=== PATIENT | female | born 1945 | race Hispanic/Latino ===

== ENCOUNTER 2017-11-07 12:59 | Inpatient (IN) | payer OTHER, MEDICARE ==
[2017-11-07 13:04] VITALS: BMI 25.8
--- NOTE | 2017-11-07 13:17 | ED PDOC ---
Arrival/HPI - General Chief Complaint: Seizure Time Seen by Provider: 11/07/17 13:05 Historian: Patient - History of Present Illness Narrative History of Present Illness (Text): 11/07/17 13:16 72 year old female, whose PMH includes dementia, OR, mastectomy, and anxiety, who presents to the emergency department s/p seizure episode prior to arrival. Patient is accompanied by her sister, who states feeding patient and at around 12 PM today patient began to have a seizure episode that was also witnessed by sister's . Sister reports this similar symptom occurred 5 years ago in the setting of a colon perf and OR. Patient is currently being treated by Dr. Ruiz for her dementia. Patient is currently asymptomatic, and denies chest pain , shortness of breath, head trauma, falls, fever, or other complaints. Sister denies postictal period, bleeding, urination, defecation, or vomiting. PMD: Dr. Sara Lazaro Time/Duration: Prior to Arrival Symptom Onset: Sudden Symptom Course: Resolved Context: Home Past Medical History - Provider Review Nursing Documentation Reviewed: Yes - Infectious Disease Hx of Infectious Diseases: None - Tetanus Immunization Tetanus Immunization: Unknown - Past Medical History Past Medical History: No Previous - Cardiac Hx Cardiac Disorders: Yes Hx OR: Yes - Pulmonary Hx Respiratory Disorders: No - Neurological Hx Neurological Disorder: Yes HX Cerebrovascular Accident: No (family denies) Hx Dementia: Yes - HEENT Hx HEENT Disorder: No (WEARS RX GLASSES) - Renal Hx Renal Disorder: No - Endocrine/Metabolic Hx Endocrine Disorders: No - Hematological/Oncological Hx Blood Disorders: No Hx Cancer: No - Integumentary Hx Dermatological Disorder: No - Musculoskeletal/Rheumatological Hx Musculoskeletal Disorders: Yes Hx Arthritis: Yes (OSTEOARTHRITIS) - Gastrointestinal Hx Gastrointestinal Disorders: Yes (WEIGHT LOSS,GASTRITIS) Hx Colostomy: Yes (from intestinal perforation 12/2013) Hx Diverticulitis: Yes HX Swallowing Problems: Yes (PUREED FOOD,ASPIRATION PRECAUTION) Other/Comment: reversal of colostomy - Genitourinary/Gynecological Hx Genitourinary Disorders: No Hx Incontinence: No (family denies) Hx Sexually Transmitted Diseases: No - Psychiatric Hx Psychophysiologic Disorder: Yes (obsessive compulsive) Hx Anxiety: Yes Hx Depression: Yes Hx Emotional Abuse: No Hx Physical Abuse: No Hx Schizophrenia: Yes Hx Substance Use: No - Surgical History Hx Mastectomy: Yes (breast cyst) Other/Comment: colostomy due to bowel perf/reversal of colostomy - Anesthesia Hx Anesthesia: Yes Hx Anesthesia Reactions: No Hx Malignant Hyperthermia: No - Suicidal Assessment Feels Threatened In Home Enviroment: No Family/Social History - Physician Review Nursing Documentation Reviewed: Yes Family/Social History: No Known Family HX Smoking Status: Never Smoked Hx Alcohol Use: No Hx Substance Use: No Hx Substance Use Treatment: No Allergies/Home Meds Allergies/Adverse Reactions: Allergies haloperidol [From Haldol] Allergy (Verified 11/05/15 19:44) ANAPHYLAXIS haloperidol lactate [From Haldol] Allergy (Verified 11/05/15 19:44) ANAPHYLAXIS shellfish derived Allergy (Verified 11/05/15 19:44) ANAPHYLAXIS Home Medications: Home Meds Medication Instructions Recorded Confirmed Atorvastatin [Lipitor] 10 mg PO DAILY 11/05/15 11/07/17 Pramipexole [Mirapex] 0.5 mg PO TID 11/05/15 11/07/17 clonazePAM [Klonopin] 1 mg PO QID 11/07/17 11/07/17 Review of Systems - Physician Review All systems were reviewed & negative as marked: Yes - Review of Systems Respiratory: absent: SOB Cardiovascular: absent: Chest Pain Neurological: Seizure. absent: Dizziness, Speech Changes Physical Exam - Physical Exam Narrative Physical Exam (Text): 11/07/17 Constitutional: No acute distress. Head: Normocephalic. Atraumatic. Eyes: PERRL. ENT: (+) Dry mucous membranes. (-) no sign of tongue bite Neck: Supple. Cardiovascular: (+) tachycardia Chest: No tenderness. Respiratory: Clear to auscultation bilaterally. GI: Soft. Nontender. Nondistended. Back: No CVA tenderness. Musculoskeletal: No tenderness or swelling of extremities. Skin: No rash. Neurologic: Alert, no focal deficit. 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 Plan: -- EKG -- CT head -- Chest X-ray -- Labs -- Urinalysis -- Reassess and disposition Progress Notes: EKG: Ordered, reviewed, and independently interpreted the EKG. Rate : 120 BPM Rhythm : sinus tachycardia Interpretation : No ST-segment elevations or depressions, no T-wave inversions, normal intervals. 11/07/17 14:20 Chest X-ray: Creator : Pedro Luis Castillo MD COMPARISON: 11/04/2017 FINDINGS: LUNGS: No active pulmonary disease. PLEURA: No significant pleural effusion identified, no pneumothorax apparent. CARDIOVASCULAR: No radiographic findings to suggest acute or significant cardiovascular disease. OSSEOUS STRUCTURES: No significant abnormalities. VISUALIZED UPPER ABDOMEN: Normal. OTHER FINDINGS: None. IMPRESSION: No active disease. No significant interval change compared to the prior examination(s). Head CT no acute findings. HR normalized without intervention. Dr. Deal accepts patient to his service and recommends Dr. Villegas for neurology consultation. - Lab Interpretations Lab Results: 11/07/17 14:00 11/07/17 14:00 Lab Results 11/07/17 15:12: Urine Color Yellow, Urine Appearance Clear, Urine pH 6.0, Ur Specific [place] >= 1.030, Urine Protein Trace H, Urine Glucose (UA) >=1000, Urine Ketones Trace H, Urine Blood Trace-lysed H, Urine Nitrate Negative, Urine Bilirubin Negative, Urine Urobilinogen 0.2, Ur Leukocyte Esterase Negative, Urine RBC 0 - 2, Urine WBC 5 - 10, Ur Epithelial Cells 0 - 2, Urine Bacteria Trace 11/07/17 14:00: Sodium 133, Potassium 4.8, Chloride 100, Carbon Dioxide 19 L, Anion Gap 18, BUN 12, Creatinine 0.7, Est GFR ( Amer) > 60, Est GFR (Non- Af Amer) > 60, Random Glucose 248 H, Calcium 9.0, Phosphorus 2.2 L, Magnesium 2.1, Total Bilirubin 0.4, AST 33, ALT 50, Alkaline Phosphatase 70, Total Creatine Kinase 84, Troponin I < 0.01, Total Protein 6.7, Albumin 3.9, Globulin 2.7, Albumin/Globulin Ratio 1.4 11/07/17 14:00: PT 12.4, INR 1.08, APTT 25.0 L 11/07/17 14:00: WBC 9.9 D, RBC 4.53, Hgb 13.7, Hct 39.8, MCV 87.9, MCH 30.2, MCHC 34.4, RDW 13.0, Plt Count 220, MPV 9.0, Gran % 87.7 H, Lymph % (Auto) 4.8 L , [place] % (Auto) 7.1 H, Eos % (Auto) 0.3 L, Baso % (Auto) 0.1, Gran # 8.68 H, Lymph # (Auto) 0.5 L, [place] # (Auto) 0.7 H, Eos # (Auto) 0.0, Baso # (Auto) 0.01 , Neutrophils % (Manual) 92 H, Lymphocytes % (Manual) 4 L, Monocytes % (Manual) 3, Eosinophils % (Manual) 1, Platelet Evaluation Normal - RAD Interpretation Radiology Orders: 11/07/17 13:24 HEAD W/O CONTRAST [CT] Stat CHEST PORTABLE [RAD] Stat - Scribe Statement The provider has reviewed the documentation as recorded by the Zanibhan Conley Provider Scribe Attestation: All medical record entries made by the Scribe were at my direction and personally dictated by me. I have reviewed the chart and agree that the record accurately reflects my personal performance of the history, physical exam, medical decision making, and the department course for this patient. I have also personally directed, reviewed, and agree with the discharge instructions and disposition. Disposition/Present on Arrival - Present on Arrival Any Indicators Present on Arrival: No History of DVT/PE: No History of Uncontrolled Diabetes: No Urinary Catheter: No History of Decub. Ulcer: No History Surgical Site Infection Following: None - Disposition Have Diagnosis and Disposition been Completed?: Yes Diagnosis: Seizure Disposition: HOSPITALIZED Disposition Time: 15:57 Patient Plan: Admission, Telemetry Condition: STABLE Referrals: Gamaliel Ruiz MD [Primary Care Provider] - Follow up with primary Forms: [employer] ([place])
[2017-11-07 14:09] LABS: BASO # 0.01 K/mm3 (0.0-2.0); BASO % 0.1 % (0.0-3.0); EOS % 0.3 % (1.5-5.0); GRAN # 8.68 (1.4-6.5); GRAN % 87.7 % (50.0-68.0); HEMOGLOBIN 13.7 g/dL (12.0-16.0); LYMPH # 0.5 (1.2-3.4); LYMPH % 4.8 % (22.0-35.0); MEAN CELL VOLUME 87.9 fl (80.0-105.0); MEAN CORPUSCULAR HEMOGLOBIN 30.2 pg (25.0-35.0); MEAN CORPUSCULAR HGB CONC 34.4 g/dl (31.0-37.0); MONO # 0.7 (0.1-0.6); MONO % 7.1 % (1.0-6.0); PLATELET COUNT 220 10^3/uL (120.0-450.0); RBC 4.53 10^6/uL (3.5-6.1); WHITE BLOOD COUNT 9.9 10^3/ul (4.5-11.0)
[2017-11-07 14:19] LABS: INR 1.08 (0.93-1.08); PROTHROMBIN TIME 12.4 SECONDS (9.4-12.5)
[2017-11-07 14:23] LABS: ALB/GLOB RATIO 1.4 (1.1-1.8); ALBUMIN 3.9 g/dL (3.0-4.8); ALT/SGPT 50 U/L (7-56); AST/SGOT 33 U/L (14-36); BLOOD UREA NITROGEN 12 mg/dL (7-21); GFR AFRICAN-AMERICAN > 60; GFR NON-AFRICAN AMERICAN > 60
--- NOTE | 2017-11-07 14:24 | RAD ---
Date of service: 11/07/2017 HISTORY: seizure COMPARISON: 11/04/2017 FINDINGS: LUNGS: No active pulmonary disease. PLEURA: No significant pleural effusion identified, no pneumothorax apparent. CARDIOVASCULAR: No radiographic findings to suggest acute or significant cardiovascular disease. OSSEOUS STRUCTURES: No significant abnormalities. VISUALIZED UPPER ABDOMEN: Normal. OTHER FINDINGS: None. IMPRESSION: No active disease. No significant interval change compared to the prior examination(s).
[2017-11-07 14:34] LABS: TROPONIN I < 0.01 ng/mL
[2017-11-07 15:02] LABS: EOSINOPHIL 1 % (0.0-3.0); LYMPHOCYTE 4 % (22.0-35.0); MONOCYTE 3 % (1.0-6.0); NEUTROPHIL 92 % (50.0-70.0)
[2017-11-07 15:03] LABS: PLATELET ESTIMATE NORMAL (NORMAL)
[2017-11-07 15:28] LABS: URINE BILIRUBIN NEGATIVE (NEGATIVE); URINE BLOOD TRACE-LYSED (NEGATIVE); URINE GLUCOSE (UA) >=1000 mg/dL (NEGATIVE); URINE LEUKOCYTE ESTERASE NEGATIVE Leu/uL (NEGATIVE); URINE PROTEIN TRACE mg/dL (<30 mg/dL); URINE UROBILINOGEN 0.2 E.U./dL (<1 E.U./dL)
[2017-11-07 15:29] LABS: URINE APPEARANCE CLEAR (CLEAR); URINE COLOR YELLOW (YELLOW)
[2017-11-07 15:34] LABS: URINE BACTERIA TRACE (NEG); URINE EPITHELIAL CELLS 0 - 2 /hpf (0-5); URINE RBC 0 - 2 /hpf (0-2)
--- NOTE | 2017-11-07 15:44 | CT ---
Date of service: 11/07/2017 PROCEDURE: CT HEAD WITHOUT CONTRAST. HISTORY: seizure COMPARISON: 11/05/2015 TECHNIQUE: Axial computed tomography images were obtained through the head/brain without intravenous contrast. Radiation dose: Total exam DLP = 993 mGy-cm. This CT exam was performed using one or more of the following dose reduction techniques: Automated exposure control, adjustment of the mA and/or kV according to patient size, and/or use of iterative reconstruction technique. FINDINGS: HEMORRHAGE: No intracranial hemorrhage. BRAIN: No mass effect or edema. No atrophy or chronic microvascular ischemic changes. VENTRICLES: Unremarkable. No hydrocephalus. CALVARIUM: Unremarkable. PARANASAL SINUSES: Unremarkable as visualized. No significant inflammatory changes. MASTOID AIR CELLS: Unremarkable as visualized. No inflammatory changes. OTHER FINDINGS: None. IMPRESSION: No acute findings
--- NOTE | 2017-11-07 16:36 | CARD ---
APPROVED REPORT Date of service: 11/07/2017 EKG Measurement Heart [id number] <Conclusion> Sinus tachycardia Otherwise normal ECG
[2017-11-07] MEDS ORDERED: Sodium Chloride 0.9% 1,000 ML IV STA ×2 (18:15→20:36)
[2017-11-07] MEDS ORDERED: Vancomycin 1gm in NS 250ml 1 GM/250 ML BAG IVPB STA (18:49)
[2017-11-07 19:46] LABS: VENOUS BLOOD GAS BASE EXCESS -2.9 mmol/L (0.0-2.0); VENOUS BLOOD GAS PO2 183 mm/Hg (30-55); VENOUS BLOOD PH 7.41 (7.32-7.43)
[2017-11-07] MEDS: Cefepime 1gm in NS 100ml 1 GM/100 ML BAG IVPB SCH (20:39)
[2017-11-07] MEDS ORDERED: Pneumococcal 23-Valent Vaccine IM ONE (23:19)
[2017-11-07 23:59] LABS: VENOUS BLOOD GAS BASE EXCESS -0.8 mmol/L (0.0-2.0); VENOUS BLOOD GAS PO2 49 mm/Hg (30-55); VENOUS BLOOD PH 7.36 (7.32-7.43)
[2017-11-08 07:20] LABS: HEMOGLOBIN 12.8 g/dL (12.0-16.0); MEAN CELL VOLUME 89.7 fl (80.0-105.0); MEAN CORPUSCULAR HGB CONC 33.4 g/dl (31.0-37.0); MEAN PLATELET VOLUME 8.9 fl (7.0-11.0); RBC 4.27 10^6/uL (3.5-6.1); RED CELL DISTRIBUTION WIDTH 13.5 % (11.5-14.5); WHITE BLOOD COUNT 7.8 10^3/ul (4.5-11.0)
[2017-11-08 07:39] LABS: ALB/GLOB RATIO 1.3 (1.1-1.8); ALBUMIN 3.3 g/dL (3.0-4.8); ALT/SGPT 49 U/L (7-56); AST/SGOT 32 U/L (14-36); BLOOD UREA NITROGEN 10 mg/dL (7-21); CALCIUM 8.4 mg/dL (8.4-10.5); GFR AFRICAN-AMERICAN > 60; GFR NON-AFRICAN AMERICAN > 60
[2017-11-08 07:45] LABS: TROPONIN I < 0.01 ng/mL
--- NOTE | 2017-11-08 09:33 | CP.PCM.HP ---
History of Present Illness - History of Present Illness History of Present Illness: Medicine H&P for Dr. Deal's service - Jones Patterson PGY3 HPI: Patient is a 72yo female with past medical history of colon resection (2013 ), atrial fibrillation, dementia, schizophrenia (diagnosed age 18), osteoarthritis, gastritis that presented to the ED with report of seizure episode at home. Per discussion with patient's sister Shyla, patient had just finished her lunch at approximately 12pm and was left to watch television on the couch with her . During this time she began having a seizure-like episode that lasted less than 5 minutes. EMS was immediately called and she was reported to be her usual self during this time. However, there was no report of tongue-biting, bowel/bladder incontinence, post-ictal like state. Family reports that the day prior she was in her usual state of health. In the ED, she was noted to have a temperature of 101.2F and was given tylenol and cefepime. CXR revealed no active disease and Head CT revealed no acute intracranial abnormalities. She was admitted for evaluation of possible seizure. 12point ROS limited due to patient's advanced dementia PMH: as stated above PSH: colon resection (2013) Allergies: haldol, shellfish Social Hx: no history of tobacco, alcohol, illicit drug use Family Hx: reviewed, non-contributory Present on Admission - Present on Admission Any Indicators Present on Admission: No Past Patient History - Infectious Disease Hx of Infectious Diseases: None - Tetanus Immunizations Tetanus Immunization: Unknown - Past Medical History & Family History Past Medical History?: Yes - Past Social History Smoking Status: Never Smoked - CARDIAC Hx Cardiac Disorders: Yes (mi) Hx Cardia Arrhythmia: Yes Hx Hypertension: Yes - PULMONARY Hx Respiratory Disorders: No - NEUROLOGICAL Hx Neurological Disorder: Yes Hx Alzheimer's Disease: Yes HX Cerebrovascular Accident: No (family denies) Hx Dementia: Yes - HEENT Hx HEENT Problems: Yes (WEARS RX GLASSES) Other/Comment: pt can drink water and juice without thickit - RENAL Hx Chronic Kidney Disease: No - ENDOCRINE/METABOLIC Hx Endocrine Disorders: No - HEMATOLOGICAL/ONCOLOGICAL Hx Blood Disorders: No Hx Cancer: No - INTEGUMENTARY Hx Dermatological Problems: Yes Other/Comment: r ft 2nd toe redness, hammertoes b/l feet 2 3 4, healed surgical scars to abd, scratch nascimento gal - MUSCULOSKELETAL/RHEUMATOLOGICAL Hx Musculoskeletal Disorders: Yes Hx Arthritis: Yes Hx Falls: No Hx Osteoarthritis: Yes Hx Osteoporosis: Yes Hx Unsteady Gait: Yes (human assist) - GASTROINTESTINAL Hx Gastrointestinal Disorders: Yes (WEIGHT LOSS,GASTRITIS) Hx Colostomy: Yes (from intestinal perforation 12/2013) Hx Diverticulitis: Yes HX Swallowing Problems: Yes (PUREED FOOD,ASPIRATION PRECAUTION) Other/Comment: reversal of colostomy 07/05/14 - GENITOURINARY/GYNECOLOGICAL Hx Genitourinary Disorders: No Hx Incontinence: No (family denies) Hx Sexually Transmitted Disorders: No - PSYCHIATRIC Hx Psychophysiologic Disorder: Yes (obsessive compulsive, psychosis) Hx Anxiety: Yes Hx Depression: Yes Hx Emotional Abuse: No Hx Paranoia: Yes Hx Physical Abuse: No Hx Schizophrenia: Yes Hx Substance Use: No - SURGICAL HISTORY Hx Surgeries: Yes Hx Mastectomy: Yes (breast cyst) Other/Comment: colostomy due to bowel perf/reversal of colostomy, picc 2013 - ANESTHESIA Hx Anesthesia: Yes Hx Anesthesia Reactions: No Hx Malignant Hyperthermia: No Meds Allergies/Adverse Reactions: Allergies Allergy/AdvReac Type Severity Reaction Status Date / Time haloperidol [From Haldol] Allergy ANAPHYLAXIS Verified 11/05/15 19:44 haloperidol lactate Allergy ANAPHYLAXIS Verified 11/05/15 19:44 [From Haldol] shellfish derived Allergy ANAPHYLAXIS Verified 11/05/15 19:44 Physical Exam - Constitutional Appears: Chronically Ill - Head Exam Head Exam: ATRAUMATIC, NORMOCEPHALIC - Eye Exam Eye Exam: EOMI, PERRL - ENT Exam ENT Exam: Mucous Membranes Moist - Respiratory Exam Respiratory Exam: absent: Rales, Rhonchi, Wheezes - Cardiovascular Exam Cardiovascular Exam: RRR, +S1, +S2. absent: Clicks, Gallop, Rubs - GI/Abdominal Exam GI & Abdominal Exam: Soft. absent: Distended, Firm, Guarding, Rigid, Tenderness - Skin Skin Exam: Dry, Intact, Normal Color, Warm Results - Vital Signs Recent Vital Signs: Last Vital Signs Temp 98.2 F 11/08/17 06:00 Pulse 80 11/08/17 06:00 Resp 19 11/08/17 06:00 BP 108/61 11/08/17 06:00 Pulse Ox 94 L 11/08/17 06:00 - Labs Result Diagrams: 11/08/17 07:00 11/08/17 07:00 Labs: Laboratory Results - last 24 hr 11/07/17 11/07/17 11/08/17 19:25 23:30 07:00 WBC 7.8 D RBC 4.27 Hgb 12.8 Hct 38.3 MCV 89.7 MCH 30.0 MCHC 33.4 RDW 13.5 Plt Count 200 MPV 8.9 pO2 183 H 49 VBG pH 7.41 7.36 VBG pCO2 33.0 L 44.0 VBG HCO3 20.9 L 24.9 VBG Total CO2 21.9 L 26.3 VBG O2 Sat (Calc) 99.7 H 88.0 H VBG Base Excess -2.9 L -0.8 L VBG Potassium 4.1 4.0 Sodium 131.0 L 134.0 Chloride 101.0 104.0 Glucose 184 H 109 H Lactate 3.0 H 1.5 FiO2 21.0 21.0 Potassium Carbon Dioxide Anion Gap BUN Creatinine Est GFR ( Amer) Est GFR (Non-Af Amer) Random Glucose Calcium Total Bilirubin AST ALT Alkaline Phosphatase Troponin I Total Protein Albumin Globulin Albumin/Globulin Ratio Venous Blood Potassium 4.1 4.0 11/08/17 07:00 WBC RBC Hgb Hct MCV MCH MCHC RDW Plt Count MPV pO2 VBG pH VBG pCO2 VBG HCO3 VBG Total CO2 VBG O2 Sat (Calc) VBG Base Excess VBG Potassium Sodium 137 Chloride 105 Glucose Lactate FiO2 Potassium 4.0 Carbon Dioxide 25 Anion Gap 11 BUN 10 Creatinine 0.6 L Est GFR ( Amer) > 60 Est GFR (Non-Af Amer) > 60 Random Glucose 98 Calcium 8.4 Total Bilirubin 0.6 AST 32 ALT 49 Alkaline Phosphatase 66 Troponin I < 0.01 Total Protein 5.9 Albumin 3.3 Globulin 2.6 Albumin/Globulin Ratio 1.3 Venous Blood Potassium Assessment & Plan - Assessment and Plan (Free Text) Plan: 72yo female with history of colon resection (2013), atrial fibrillation, dementia, schizophrenia (diagnosed age 18), osteoarthritis, gastritis [place] [facility] [place] of seizure 1. Syncope r/o seizure 2. Hx of alzheimers dementia 3. Hx of schizophrenia 4. Hx of atrial fibrillation 5. osteoarthritis 6. gastritis -Tylenol PRN for fevers and patient started on cefepime IV for abx coverage -Blood/urine cultures pending -CBC/CMP/Urinalysis is unremarkable -Head CT revealed no acute intracranial abnormalities -CXR revealed no active disease -EKG reviewed; sinus tach with no acute ST-T wave changes -Troponin negative x2 -Psychiatry consulted -Neurology consulted -PT/OT -HOB > 30' -Further workup/treatment as per clinical course -Discussed with patient's sisterShyla Patient seen and case discussed/reviewed with attending, Dr. Deal
[2017-11-08] MEDS: Cefepime 1gm in NS 100ml 1 GM/100 ML BAG IVPB SCH ×2 (10:23→21:03)
[2017-11-08] MEDS: diltiaZEM 120 mg/24 Hours CD Cap PO SCH (14:14)
[2017-11-08] MEDS: levETIRAcetam 500 mg/5ml UD cups PO SCH (18:19)
--- NOTE | 2017-11-08 20:40 | CON ---
DATE: 11/08/2017 HISTORY OF PRESENT ILLNESS: This is a 72-year-old white female with a past medical history of atrial fibrillation, dementia, schizophrenia, osteoarthritis, gastritis, came today with episode of seizure and patient had last seizure was 7 years ago and was not taking any medicines and brought her to the emergency room. No tongue bite, no urinary incontinence. Temperature was 101.2. CAT scan of the head was done, which was reported negative. PAST MEDICAL HISTORY: As above. PAST SURGICAL HISTORY: Colon resection. ALLERGIES: HALDOL AND SHELLFISH. SOCIAL HISTORY: Does not smoke, does not drink. PHYSICAL EXAMINATION: HEENT: Normocephalic and atraumatic. NECK: Supple. NEUROLOGIC: Alert, awake, and oriented to self and place. Cranial nerves II through XII are tested. Pupils reactive. EOM intact. Visual field full. No facial asymmetry. Tongue midline. Motor examination: Moves all the extremities spontaneously. Deep tendon reflexes 1+. Both plantars are downgoing. Sensory appears intact. Cerebellar, gait deferred. IMPRESSION: This is a 72-year-old with history of atrial fibrillation, dementia, schizophrenia, gastritis, came here with episode of possible syncope versus seizure and also patient has dementia, schizophrenia, and atrial fibrillation. CAT scan of the head was done, which was negative. We will start Keppra 500 twice a day and do EEG. Further management after the results of above. Bang Villegas MD
--- NOTE | 2017-11-09 03:20 | CON ---
DATE: 11/08/2017 HISTORY OF PRESENT ILLNESS: Shortly, patient is 72-year-old female with multiple medical problems as well as dementia, schizophrenia. The patient also has pervasive developmental disorder. The patient has psychiatrist in the community. The patient was admitted to the medical side, status post possible seizures. Psych consult was called for evaluation of medications and the patient has long history of mental illness. The patient is well known to this bid writer from the previous admission to the psychiatric inpatient unit, which took place here in [place]. The patient was seen by this bid writer on 04/2015. The patient was seen and examined today. The patient presented to be pleasantly confused. There is no agitation, no aggression, no inappropriate behavior. This bid writer had prolonged conversation with the patient's who is next to her as well as her sister, Shyla Barba. As per collateral information, the patient is doing well. The patient is seeing Dr. Romario Fagan every 2 months. Medications were confirmed by the patient's pharmacy, [facility] and all of the medications resumed. As per family, the patient tolerates medications well and was doing relatively fine up until recently up until admission and the main concern was possible seizures. PHYSICAL EXAMINATION: VITAL SIGNS: This bid writer reviewed vital signs. Temperature 98, pulse is 93, blood pressure 148/89, respirations 26, and oxygen saturation is 94%. MEDICATIONS: Reviewed. The patient is on Lipitor, Cogentin 1 mg twice a day, Maxipime. Also, the patient is on Klonopin 1 mg four times a day. The patient is on Cardizem, Aricept, Mirapex. As per the patient's family, she has her neurologist appointment and she keeps all her appointment as it was scheduled. MENTAL STATUS EXAMINATION: Patient pleasantly confused, was not able to participate in interview. Looking at this bid writer and smiling at times. As per the patient's family, this is patient's baseline. IMPRESSION: As per history, schizophrenia, pervasive developmental disability as well as dementia. PLAN: All medications were confirmed with the patient's pharmacy, [facility]. This bid writer had prolonged conversation with the patient's as well as Shyla Roberts, patient's sister at [phone]. The patient was doing well. The patient has followup appointment with Dr. Romario Fagan, local psychiatrist; neurologist; and primary care physician. No behavioral incidents. As per history, the patient is very sensitive to the psychotic medication as well as first generation. Please avoid any antipsychotics as of now. This bid writer will sign off. Should you have any questions, give me a call back. Thank you very much for letting me participate in care of your patient. Steffi Patel MD MTDIris
[2017-11-09 06:58] LABS: BASO # 0.02 K/mm3 (0.0-2.0); BASO % 0.2 % (0.0-3.0); EOS # 0.1 (0.0-0.7); EOS % 1.4 % (1.5-5.0); GRAN # 7.46 (1.4-6.5); GRAN % 76.4 % (50.0-68.0); LYMPH # 1.1 (1.2-3.4); LYMPH % 10.7 % (22.0-35.0); MEAN CELL VOLUME 88.9 fl (80.0-105.0); MEAN CORPUSCULAR HGB CONC 33.7 g/dl (31.0-37.0); MEAN PLATELET VOLUME 9.7 fl (7.0-11.0); MONO # 1.1 (0.1-0.6); MONO % 11.3 % (1.0-6.0); RBC 4.67 10^6/uL (3.5-6.1); RED CELL DISTRIBUTION WIDTH 13.1 % (11.5-14.5); WHITE BLOOD COUNT 9.8 10^3/ul (4.5-11.0)
[2017-11-09 07:56] LABS: ALB/GLOB RATIO 1.3 (1.1-1.8); ALBUMIN 3.7 g/dL (3.0-4.8); ALT/SGPT 60 U/L (7-56); AST/SGOT 39 U/L (14-36); BLOOD UREA NITROGEN 9 mg/dL (7-21); CALCIUM 8.9 mg/dL (8.4-10.5); GFR AFRICAN-AMERICAN > 60; GFR NON-AFRICAN AMERICAN > 60
[2017-11-09] MEDS: levETIRAcetam 500 mg/5ml UD cups PO SCH ×2 (11:11→18:25)
[2017-11-09] MEDS: diltiaZEM 120 mg/24 Hours CD Cap PO SCH (11:11)
[2017-11-09] MEDS: Cefepime 1gm in NS 100ml 1 GM/100 ML BAG IVPB SCH ×2 (11:11→21:11)
[2017-11-09] MEDS: POLYETHYLENE GLYCOL 3350 17 GM/Dose PACKET PO SCH (13:38)
[2017-11-09 22:34] LABS: BARBITURATES, UR NEGATIVE (NEGATIVE); BENZODIAZEPINES, UR NEGATIVE (NEGATIVE); OPIATES, UR NEGATIVE (NEGATIVE); PHENCYCLIDINE, UR NEGATIVE (NEGATIVE)
--- NOTE | 2017-11-09 23:21 | PN ---
DATE: 11/09/2017 HISTORY OF PRESENT ILLNESS: Ms. López is a 72-year-old female admitted to the hospital with episodes of seizure. She has a history of seizure disorder, her last seizure was seven years ago. She was evaluated by Neurology, Dr. Villegas. Keppra [address] was suggested. CT head unremarkable. She had a history of mastectomy for benign cyst and colostomy, colostomy reversal for bowel perforation. She has no history of cancer in the past; history of myocardial infarction and dementia. She is most of the time bed-bound at home, taken care by her [id number] at home. She takes Klonopin 1 mg p.r.n. for agitation. She also has a history of schizophrenia, currently no active issues. Sees for seizure disorder. PAST MEDICAL HISTORY: Seizure disorder, dementia, CVA, schizophrenia, osteoarthritis, diverticulitis, bowel perforation. PAST SURGICAL HISTORY: Colostomy, mastectomy. FAMILY HISTORY: Noncontributory. SOCIAL HISTORY: Lives at home with . ALLERGIES: HALDOL, SHELLFISH. HOME MEDICATIONS: Lipitor, Klonopin 1 mg p.o. b.i.d., Mirapex 0.5 mg p.o. t.i.d. REVIEW OF SYSTEMS: As per HPI. Rest of 12-point review of systems is reviewed and negative. PHYSICAL EXAMINATION GENERAL: She is comfortable in bed, in no acute distress. She is sedated, arousable. VITAL SIGNS: Temperature 98.4, heart rate 100 per minute, respiratory rate 16 per minute, blood pressure 130/80, pulse ox on room air. HEENT: Pallor positive. NECK: No lymphadenopathy. CHEST: Air entry present and equal bilateral. No added sound. CARDIOVASCULAR: S1 and S2 normal. No murmur. No gallop. ABDOMEN: Soft, nontender. No hepatosplenomegaly. EXTREMITIES: No edema. INTERNET SYSTEMS ADMINISTRATOR: Sedated. No focal sensory or motor deficit. LABORATORY DATA: White count 9.9, hemoglobin 13.7, hematocrit 39.8, platelet 222. Sodium 133, potassium 4.8, BUN 12, creatinine 0.7, glucose 248, granulocyte 87%, monocyte 7%. Chest x-ray, no infiltrate. Urine culture negative. ASSESSMENT: 1. Seizure disorder. 2. History of myocardial infarction. 3. Dementia. 4. Schizophrenia. 5. Granulocytosis. PLAN: We will continue current medications. She is very sedated with Klonopin which was ordered 1 mg four times a day. I will decrease the dose to 0.5 mg p.r.n. for agitation. We will continue Keppra 500 mg p.o. b.i.d., Aricept 10 mg every bedtime, Cardizem 120 mg p.o. daily, Lipitor 10 mg daily, Tylenol every 4 hours p.r.n. Discharge planning probably tomorrow. Discussed with the at bedside. Discussed with the staff nurse. Labs ordered for tomorrow. Bhumi Siddiqui MD
[2017-11-10 05:50] VITALS: RESP 18; TEMP 98; O2SAT 96
[2017-11-10] MEDS: levETIRAcetam 500 mg/5ml UD cups PO SCH (09:24)
[2017-11-10] MEDS: POLYETHYLENE GLYCOL 3350 17 GM/Dose PACKET PO SCH (09:24)
[2017-11-10] MEDS: diltiaZEM 120 mg/24 Hours CD Cap PO SCH (09:24)
[2017-11-10] MEDS: Cefepime 1gm in NS 100ml 1 GM/100 ML BAG IVPB SCH (09:24)
[2017-11-10 09:26] VITALS: BP 154/76
[2017-11-10 10:38] VITALS: PULSE 86
--- NOTE | 2017-11-10 11:32 | DS ---
DATE OF DISCHARGE: 11/10/2017. DISCHARGE DIAGNOSES: 1. Seizure disorder. 2. Schizophrenia. 3. Granulocytosis. HOSPITAL COURSE: The patient was admitted with new onset of seizures. She did not have seizures for 5 to 7 years. Neurology consultation, Dr. Villegas, requested Keppra 500 mg p.o. b.i.d. was suggested. She remains stable during the hospitalization. No new seizures. She is being discharged home in stable condition. PHYSICAL EXAMINATION: On discharge; GENERAL: Comfortable in bed, in no acute distress. Alert and oriented x3. VITAL SIGNS: Stable. Temperature 98.7, heart rate 70 per minute, blood pressure 139/78, respiratory rate 18 per minute, and oxygen saturation 98% on room air. HEENT: No pallor. NECK: No lymphadenopathy. CHEST: Air entry present and equal bilateral. No added sound. CARDIOVASCULAR: S1 and S2 normal. No murmur. No gallop. ABDOMEN: Soft, nontender. No hepatosplenomegaly. EXTREMITIES: No edema. 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 No focal sensory or motor deficit. CONDITION ON DISCHARGE: Stable. DISPOSITION: Discharge home. DIET: Regular. DISCHARGE MEDICATIONS: Resume home medications, in addition take Keppra 500 mg p.o. b.i.d. FOLLOWUP: Follow up with Dr. Deal in 1 week. Follow up with Dr. Villegas in 1 week. Discussed with the staff nurse. Discussed with the at bedside. Time spent in preparing discharge and coordinating care 55 minutes. Bhumi Siddiqui MD
== END 2017-11-10 12:56 | disposition home or self-care (01) | DRG 101 ==
LOC: ED 12:59 → ERH 17:05 → 2RNO 21:18
PROVIDERS: ADMIT Internal Medicine Nephrology; ATTEND Internal Medicine Nephrology
DX: G40.909 Epilepsy, unspecified, not intractable, without status epilepticus (principal); F84.9 Pervasive developmental disorder, unspecified; F20.9 Schizophrenia, unspecified; I10 Essential (primary) hypertension; G30.9 Alzheimer's disease, unspecified; F02.80 Dementia in other diseases classified elsewhere, unspecified severity, without behavioral disturbance, psychotic disturbance, mood disturbance, and anxiety; I48.91 Unspecified atrial fibrillation; M81.0 Age-related osteoporosis without current pathological fracture; M19.90 Unspecified osteoarthritis, unspecified site; K29.70 Gastritis, unspecified, without bleeding; Z93.3 Colostomy status; Z74.01 Bed confinement status; Z86.73 Personal history of transient ischemic attack (TIA), and cerebral infarction without residual deficits; I25.2 Old myocardial infarction; Z90.10 Acquired absence of unspecified breast and nipple; Z90.49 Acquired absence of other specified parts of digestive tract